=== PATIENT | female | born 1970 | race Caucasian/White ===

== ENCOUNTER 2017-05-21 20:09 | Emergency (ER) | payer BC ==
[2017-05-21 20:20] VITALS: BP 103/53; PULSE 66; TEMP 98.3; BMI 26.6
--- NOTE | 2017-05-21 20:57 | PDOC ---
History of Present Illness - General History Source: Patient, Old Records Exam Limitations: No Limitations - History of Present Illness Initial Comments: 05/21/17 21:00 The patient is a 46 year old female with no significant past medical history who presents to the Emergency Department with upper chest and lower facial rash for 5 days. The patient states that her daughter came home from school with lice and she subsequently washed both her daughters hair as well as her own hair with a lice shampoo. She reports that her rash becomes more irritable when she is sweating or showering. The patient notes that her daughter no longer has lice but her rash has been present since washing her hair with the shampoo. She notes that neither of her daughters has a rash. She endorses associated chills. She denies fever, nausea, vomiting, and diarrhea. <Raad Tinsley - Last Filed: 05/21/17 21:00> <Timothy Akhtar - Last Filed: 05/22/17 06:31> - General Chief Complaint: Rash Stated Complaint: RASH Time Seen by Provider: 05/21/17 20:48 Past History <Raad Tinsley - Last Filed: 05/21/17 21:00> - Past Medical History COPD: No - Immunization History Immunization Up to Date: Yes - Suicide/Smoking/Psychosocial Hx Smoking History: Never smoked Number of Cigarettes Smoked Daily: 0 Cigars Per Day: 0 Information on smoking cessation initiated: No Hx Alcohol Use: No Drug/Substance Use Hx: No Substance Use Type: None <Timothy Akhtar - Last Filed: 05/22/17 06:31> - Past Medical History Allergies/Adverse Reactions: Allergies Allergy/AdvReac Type Severity Reaction Status Date / Time No Known Allergies Allergy Verified 05/21/17 20:15 Home Medications: Ambulatory Orders Hydrocortisone 2.5% Topical Cr [Anusol-Hc -] 1 applic RC BID #1 tube 05/21/17 Hydrocortisone Valerate [Westcort 0.2% Cream -] 1 applic TP BID #1 tube Review of Systems - Review of Systems Able to Perform ROS?: Yes Comments:: 05/21/17 21:00 GENERAL/CONSTITUTIONAL: No fever or chills. No weakness. HEAD, EYES, EARS, NOSE AND THROAT: No change in vision. No ear pain or discharge. No sore throat. CARDIOVASCULAR: No chest pain or shortness of breath. RESPIRATORY: No cough, wheezing, or hemoptysis. GASTROINTESTINAL: No nausea, vomiting, diarrhea or constipation. GENITOURINARY: No dysuria, frequency, or change in urination. MUSCULOSKELETAL: No joint or muscle swelling or pain. No neck or back pain. SKIN: No rash NEUROLOGIC: No headache, vertigo, loss of consciousness, or change in strength/ sensation. ENDOCRINE: No increased thirst. No abnormal weight change. HEMATOLOGIC/LYMPHATIC: No anemia, easy bleeding, or history of blood clots. ALLERGIC/IMMUNOLOGIC: (+) Upper chest rash. Lower facial rash <Raad Tinsley - Last Filed: 05/21/17 21:00> *Physical Exam - Vital Signs Last Vital Signs Temp Pulse Resp BP Pulse Ox 98.3 F 66 15 103/53 99 05/21/17 20:14 05/21/17 20:14 05/21/17 20:14 05/21/17 20:14 05/21/17 20:14 - Physical Exam Comments: 05/21/17 21:01 GENERAL: Awake, alert, and fully oriented, in no acute distress HEAD: No signs of trauma EYES: PERRLA, EOMI, sclera anicteric, conjunctiva clear ENT: Auricles normal inspection, hearing grossly normal, nares patent, oropharynx clear without exudates. Moist mucosa NECK: Normal ROM, supple, no lymphadenopathy, JVD, or masses LUNGS: Breath sounds equal, clear to auscultation bilaterally. No wheezes, and no crackles HEART: Regular rate and rhythm, normal S1 and S2, no murmurs, rubs or gallops ABDOMEN: Soft, nontender, normoactive bowel sounds. No guarding, no rebound. No masses EXTREMITIES: Normal range of motion, no edema. No clubbing or cyanosis. No cords, erythema, or tenderness NEUROLOGICAL: Cranial nerves II through XII grossly intact. Normal speech, normal gait SKIN: (+) Rash. Warm, Dry, normal turgor. No lesions noted. <Raad Tinsley - Last Filed: 05/21/17 21:00> - Vital Signs Last Vital Signs Temp Pulse Resp BP Pulse Ox 98.3 F 66 15 103/53 99 05/21/17 20:14 05/21/17 20:14 05/21/17 20:14 05/21/17 20:14 05/21/17 20:14 <Timothy Akhtar - Last Filed: 05/22/17 06:31> Medical Decision Making - Medical Decision Making 05/22/17 06:30 contact dermatitis corticosteroids <Timothy Akhtar - Last Filed: 05/22/17 06:31> *DC/Admit/Observation/Transfer - Attestations Scribe Attestion: 05/21/17 21:01 Documentation prepared by Raad Tinsley, acting as medical csr for Timothy Akhtar MD. <Raad Tinsley - Last Filed: 05/21/17 21:00> <Timothy Akhtar - Last Filed: 05/22/17 06:31> Diagnosis at time of Disposition: Contact dermatitis Qualifiers: Contact dermatitis type: allergic Contact dermatitis trigger: unspecified trigger Qualified Code(s): L23.9 - Allergic contact dermatitis, unspecified cause - Discharge Dispostion Disposition: HOME Condition at time of disposition: Good - Prescriptions Prescriptions: Hydrocortisone 2.5% Topical Cr [Anusol-Hc -] 1 applic RC BID #1 tube Hydrocortisone Valerate [Westcort 0.2% Cream -] 1 applic TP BID #1 tube - Patient Instructions Printed Discharge Instructions: DI for Contact Dermatitis
== END 2017-05-21 20:58 | disposition home or self-care (01) ==
LOC: FER 20:09
DX: L23.9 Allergic contact dermatitis, unspecified cause (principal)
CPT/HCPCS: 99281-25

== ENCOUNTER 2018-10-31 07:38 | Emergency (ER) | payer BC ==
[2018-10-31 07:53] VITALS: BP 95/62; PULSE 67; TEMP 98.2; BMI 26.1
--- NOTE | 2018-10-31 08:19 | PDOC ---
History of Present Illness - General Chief Complaint: Pain Stated Complaint: L FOOT PAIN Time Seen by Provider: 10/31/18 08:06 History Source: Patient Exam Limitations: No Limitations Past History - Travel Traveled outside of the country in the last 30 days: No Close contact w/someone who was outside of country & ill: No - Past Medical History Allergies/Adverse Reactions: Allergies Allergy/AdvReac Type Severity Reaction Status Date / Time No Known Allergies Allergy Verified 10/31/18 07:49 Home Medications: Ambulatory Orders Ibuprofen 600 mg PO Q6H #30 tablet 10/31/18 COPD: No - Immunization History Immunization Up to Date: Yes - Suicide/Smoking/Psychosocial Hx Smoking History: Never smoked Number of Cigarettes Smoked Daily: 0 Cigars Per Day: 0 Hx Alcohol Use: No Drug/Substance Use Hx: No Substance Use Type: None Review of Systems - Review of Systems Able to Perform ROS?: Yes Comments:: 10/31/18 08:15 CONSTITUTIONAL: Absent: fever, chills, diaphoresis, generalized weakness, malaise, loss of appetite HEENT: Absent: rhinorrhea, nasal congestion, throat pain, throat swelling, difficulty swallowing, mouth swelling, ear pain, eye pain, visual Changes CARDIOVASCULAR: Absent: chest pain, loss of consciousness, palpitations, irregular heart rate, peripheral edema RESPIRATORY: Absent: cough, shortness of breath, dyspnea with exertion, orthopnea, wheezing, stridor, hemoptysis GASTROINTESTINAL: Absent: abdominal pain, abdominal distension, nausea, vomiting, diarrhea, constipation, melena, hematochezia GENITOURINARY: Absent: dysuria, frequency, urgency, hesitancy, hematuria, flank pain, genital pain MUSCULOSKELETAL: Present: L 1st toe pain Absent: myalgia, arthralgia, joint swelling SKIN: Absent: rash, itching, pallor HEMATOLOGIC/IMMUNOLOGIC: Absent: easy bleeding, easy bruising, lymphadenopathy, frequent infections ENDOCRINE: Absent: unexplained weight gain, unexplained weight loss, heat intolerance, cold intolerance NEUROLOGIC: Absent: headache, focal weakness or paresthesias, dizziness, unsteady gait, seizure, mental status changes, bladder or bowel incontinence PSYCHIATRIC: Absent: anxiety, depression, suicidal or homicidal ideation, hallucinations. Is the patient limited Latvian proficient: No *Physical Exam - Vital Signs Last Vital Signs Temp Pulse Resp BP Pulse Ox 98.2 F 67 16 95/62 98 10/31/18 07:50 07/10/19 07:50 10/31/18 07:50 10/31/18 07:50 10/31/18 07:50 - Physical Exam Comments: 10/31/18 08:17 GENERAL: The patient is awake, alert, and fully oriented, in no acute distress. HEAD: Normal with no signs of trauma. EYES: Pupils equal, round and reactive to light, extraocular movements intact, sclera anicteric, conjunctiva clear. EXTREMITIES: Normal range of motion, no edema. NEUROLOGICAL: Normal speech, normal gait. PSYCH: Normal mood, normal affect. SKIN: Warm, Dry, normal turgor, no rashes or lesions noted. Medical Decision Making - Medical Decision Making 10/31/18 08:17 the patient is a 48-year-old female who presents to the ER with left first toe pain for 3 days. The patient states that she did Demetris on Monday night. When she woke up Monday she had pain. Denies trauma or stubbing the toe. Denies fevers, chills, numbness and tingling and weakness to the affected extremity. A/P: Left first toe pain On exam tender to palpation of the left first toe on both the ventral and plantar surfaces. Full range of motion of the toe intact. Uric acid obtained. Level was normal X-ray shows no fractures or dislocations of the toe Possible first toe sprain. Patient placed in hard sole shoe and referred to podiatry. I discussed the physical exam findings, ancillary test results and final diagnoses with the patient. I answered all of the patient's questions. The patient was satisfied with the care received and felt comfortable with the discharge plan and treatment plan. The Patient agrees to follow up with the primary care physician/specialist within 24-72 hours. Return precautions were given. *DC/Admit/Observation/Transfer Diagnosis at time of Disposition: Pain in left toe(s) - Discharge Dispostion Disposition: HOME Condition at time of disposition: Stable Decision to Admit order: No - Prescriptions Prescriptions: Ibuprofen 600 mg PO Q6H #30 tablet - Referrals Referrals: Lake Gilman MD [Staff Physician] - - Patient Instructions Printed Discharge Instructions: DI for Toe Sprain Additional Instructions: You were evaluated for your toe pain Your uric acid level was 4.4 (normal) Your X-ray did not show any broken bones Please wear the shoe for comfort Follow up with podietry in the next 1-2 days a referral has been provided. Return to the ER with any new or worsening symptoms - Post Discharge Activity Forms/Work/School Notes: Back to Work
[2018-10-31] MEDS ORDERED: IBUPROFEN 600 MG TABLET (FP) PO ONE ×2 (09:14→09:18)
== END 2018-10-31 09:24 | disposition home or self-care (01) ==
LOC: JER 07:38 → JERFT 07:38
DX: M79.675 Pain in left toe(s) (principal)
CPT/HCPCS: 36415; 73630-TC-LT; 84550; 99282-25